=== PATIENT | female | born 1990 | race Caucasian/White ===

== ENCOUNTER → 2017-09-14 08:57 | Outpatient (CLI) | payer BC, SELFPAY ==
[2017-09-14 11:41] LABS: Progesterone Level 10.22 ng/mL (See Comment)
== END ==
PROVIDERS: Visit Provider Obstetrics & Gynecology
DX: N97.0 Female infertility associated with anovulation (principal)
CPT/HCPCS: 36415; 84144

== ENCOUNTER → 2019-08-24 16:08 | Outpatient (CLI) | payer BC, SELFPAY ==
[2019-08-24 17:55] LABS: Hematocrit 40.3 % (37-47); Hemoglobin 13.6 g/dL (12.0-15.0); Mean Corp Hgb Conc 33.7 g/dL (32-36); Mean Corpuscular Hgb 29.8 pg (27.0-32.0); Mean Corpuscular Volume 88.4 fL (81-99); Mean Platelet Vol. 10.5 fl (6.2-12.0); Platelet Count 284 K/mm3 (150-450); RBC Distribution Width CV 12.2 % (11.6-14.6); RBC Distribution Width SD 38.9 fl (35.1-43.9); Red Blood Count 4.56 M/mm3 (4.2-5.4); White Blood Count 12.2 K/mm3 (4.4-11.0)
[2019-08-24 18:23] LABS: Thyroid Stim Hormone (TSH) 1.38 uIU/mL (0.358-3.74)
[2019-08-24 18:36] LABS: Rubella IgG 235.7 IU/mL
== END ==
PROVIDERS: Visit Provider Obstetrics & Gynecology
DX: Z34.81 Encounter for supervision of other normal pregnancy, first trimester (principal)
CPT/HCPCS: 36415; 84443; 85027; 86762

== ENCOUNTER 2019-08-31 12:07 | Emergency (ER) | payer BC, SELFPAY ==
[2019-08-31 12:08] VITALS: BP 129/86; PULSE 90; RESP 16; TEMP 36.6; O2SAT 100; BMI 35.8
[2019-08-31] MEDS: 0.9% Normal Saline 1,000 ML 999 ML IV (14:23)
[2019-08-31 14:26] LABS: Absolute Neutrophil Count 5.3 X10^3/uL (2.0-7.7); Basophil# 0.02 X10^3/uL; Basophil% 0.3 % (0-1); Eosinophil# 0.12 X10^3/uL; Eosinophils% 1.6 % (0-5); Hematocrit 40.9 % (37-47); Hemoglobin 13.6 g/dL (12.0-15.0); Lymphocyte % 21.1 % (19-41); Mean Corp Hgb Conc 33.3 g/dL (32-36); Mean Corpuscular Hgb 29.5 pg (27.0-32.0); Mean Corpuscular Volume 88.7 fL (81-99); Mean Platelet Vol. 10.3 fl (6.2-12.0); Monocyte# 0.54 X10^3/uL; Monocyte% 7.1 % (0-10); NRBC Flagged by Analyzer 0 % (0-5); Neutrophil # 5.27 X10^3/uL (2.7-7.7); Neutrophil % 69.2 % (47-70); Platelet Count 228 K/mm3 (150-450); RBC Distribution Width CV 12.4 % (11.6-14.6); RBC Distribution Width SD 39.8 fl (35.1-43.9); Red Blood Count 4.61 M/mm3 (4.2-5.4); White Blood Count 7.6 K/mm3 (4.4-11.0)
[2019-08-31 14:35] LABS: Anion Gap 6 (5-15); BUN 9 mg/dL (7-18); BUN/Creat Ratio 10.7 RATIO (10-20); Calcium,Total 9.3 mg/dL (8.5-10.1); Chloride 106 mmol/L (98-107); Creatinine, Serum 0.84 mg/dL (0.55-1.02); EST Glomerular Filtration Rate 84 mL/min (>60); Est Glom Filt Rate - Afr Amer 102 mL/min (>60); Estimated Creatinine Clearance 94.37 ml/min; Glucose 92 mg/dL (74-106); Potassium 3.7 mmol/L (3.5-5.1); Sodium Level 137 mmol/L (136-145)
--- NOTE | 2019-08-31 15:15 | ED.DCSUM_ITS ---
- ER Visit Summary Date of Service: 08/31/19 Chief Complaint: Vomiting and diarrhea History of Present Illness: The patient is a [address] Sultana and they believe year. She reports she has vomiting diarrhea that began 4 days ago. States she has crampy abdominal pain that was 9 at 10 at worst and 2 out of 10 currently. Is worsened by drinking anything. Relieved by nothing. She states she is vomited multiple times. No blood or emesis. She is also had multiple episodes of diarrhea. No blood in her stools or black tarry stools. She reports that stool was initially orange and is now green. Patient denies sick contacts. Has not been camping out of the country. No possible bad food expo sure. Does not drink well water. No recent antibiotic use. Patient reports that she is actually getting much better. However, she is a G2, P0 at 13 weeks 5 days of and called the OBs office and she was told to go to the emergency department for IV fluids. Physical Examination: Vitals: Stable. Afebrile. General: Well-nourished and well-developed. Head: Normocephalic atraumatic. Neck: Supple, no lymphadenopathy. No JVD. Nontender. Cardiovascular: Regular rate and rhythm. No murmurs. Respiratory: No respiratory distress. Clear to auscultation bilaterally. Abdominal: Soft, mild left lower quadrant tenderness to palpation, nondistended, normal bowel sounds. No guarding, rebound, or peritoneal signs. Back: Nontender. Extremities: Nontender, no edema. Skin: Normal color, no rash. Neurologic: Alert and oriented ?3. Cranial nerves II through XII are intact. Normal strength and sensation. Psych: Normal affect. Test Results: CBC is normal. Chem-7 is normal. Emergency Department Course and Treatment: Patient had an IV placed. She was given Zofran IV. She was given normal saline. She is resting comfortably. She had a bedside ultrasound shows good movement and heartbeat. Treatment Plan: Patient discussed with Dr. Zheng. She will be discharged with Zofran. Instructed to follow-up with her primary care physician 1 to 2 days if the vomiting and diarrhea is not improved. Follow-up Dr. Sultana as previously scheduled. Return to the emergency department for any worsening symptoms. Disposition: To home in improved and stable condition. Impression: 1. Vomiting/diarrhea. 2. Second trimester . This note was generated with [employer] dictation software. It may contain incorrect words, spelling, and punctuation that were not noted in review of the chart prior to signing ED Disposition - Plan for ED Patient: Disposition: Home or Assisted Living Instructions: VOMITING AND DIARRHEA, Nonspecific (Adult) Prescriptions: Ondansetron [Zofran Odt] 4 mg PO Q8H PRN PRN #10 tab PRN Reason: Nausea Prescription Printed Referrals: Gerda Pink NP-C [Primary Care Provider] - 1-2 Days if not improving Molina Sultana MD [STAFF PHYSICIAN] - Keep Rehan appointment
--- NOTE | 2019-08-31 15:15 | ED.RN ---
PT STATES TO DR CARABALLO THAT IV FLUIDS ARE MAKING HER NAUSEOUS. DR CARABALLO TO ORDER ZOFRAN & ONLY 1 BAG OF FLUIDS TO BE GIVEN. RN WILL CONTINUE TO MONITOR PATIENT.
[2019-08-31] MEDS: Ondansetron 4 MG/2 ML Vial IV (15:24)
[2019-08-31 16:02] VITALS: BP 146/72; PULSE 68; RESP 15; O2SAT 97
== END 2019-08-31 16:31 | disposition home or self-care (01) ==
PROVIDERS: Emergency Provider Emergency Medicine; PCP Nurse Practitioner Family
DX: O21.9 Vomiting of pregnancy, unspecified (principal); O26.892 Other specified pregnancy related conditions, second trimester; R19.7 Diarrhea, unspecified; Z3A.13 13 weeks gestation of pregnancy
CPT/HCPCS: 80048; 85025; 96361; 96374; 99283; J7030; A4216; J2405

== ENCOUNTER 2019-10-17 03:00 | Outpatient (CLI) | payer BC, SELFPAY ==
[2019-10-17 03:27] VITALS: TEMP 36.9
[2019-10-17 03:29] VITALS: BP 119/80; PULSE 86
[2019-10-17 04:04] VITALS: BMI 36.6
--- NOTE | 2019-10-17 10:10 | OB.TRI.NOTE ---
History of Present Illness Date of Service: 10/17/19 Was patient seen by the physician?: No Reason For Visit: Vaginal bleeding Date of Service: 10/17/19 Final PATRICIA: 03/02/20 Final PATRICIA Source: US <20 weeks Gestational age: 20 Weeks and 3 Days History of Present Illness: 29-year-old patient who presents to labor and delivery at 20+ weeks gestation with heavy vaginal bleeding which started last evening. Bleeding has since subsided. She denies any other symptoms. Allergies amoxicillin Allergy (Verified 10/17/19 04:16) Hives Penicillins Allergy (Verified 10/17/19 04:16) Hives Sulfa (Sulfonamide Antibiotics) Allergy (Verified 10/17/19 04:16) Hives morphine Adverse Reaction (Verified 10/17/19 04:16) Upset Stomach Physical Exam Vitals: Vital Signs Temp Pulse BP 98.5 F 86 119/80 10/17/19 03:27 10/17/19 03:29 10/17/19 03:29 NST - FHR Rate Baby A NST Reactive:: Appropriate for gestational age Impression/Plan 20+ week intrauterine with second trimester vaginal bleeding. No bleeding on examination. heart tones present. Will have patient back to the office later today for ultrasound to check for placenta previa or other causes of bleeding.
== END 2019-10-17 04:13 | disposition home or self-care (01) ==
LOC: WPOUT 03:13 → OBT 03:14
PROVIDERS: PCP Nurse Practitioner Family; Visit Provider Obstetrics & Gynecology
DX: O46.92 Antepartum hemorrhage, unspecified, second trimester (principal); Z3A.20 20 weeks gestation of pregnancy
CPT/HCPCS: 59050; 99218; G0378

== ENCOUNTER → 2019-12-15 | Outpatient (CLI) | payer BC, SELFPAY ==
[2019-12-15 18:25] LABS: Hemoglobin 12.6 g/dL (12.0-15.0); Mean Corp Hgb Conc 33.2 g/dL (32-36); Mean Corpuscular Hgb 30.4 pg (27.0-32.0); Mean Corpuscular Volume 91.6 fL (81-99); Platelet Count 233 K/mm3 (150-450); RBC Distribution Width CV 12.4 % (11.6-14.6); RBC Distribution Width SD 40.9 fl (35.1-43.9); Red Blood Count 4.15 M/mm3 (4.2-5.4)
[2019-12-15 19:06] LABS: Glucose Challenge Gest 1H 50g 181 mg/dL (70-140)
== END | disposition home or self-care (01) ==
LOC: LABSPEC 17:37
PROVIDERS: PCP Nurse Practitioner Family; Visit Provider Obstetrics & Gynecology
DX: Z34.82 Encounter for supervision of other normal pregnancy, second trimester (principal)
CPT/HCPCS: 82950; 85027

== ENCOUNTER → 2019-12-20 06:43 | Outpatient (CLI) | payer BC, SELFPAY ==
[2019-12-20 08:03] LABS: Glucose GTT-Gestation. Fasting 136 mg/dL (<105)
[2019-12-20 09:26] LABS: Glucose GTT-Gestational 1 Hr 240 mg/dL (<190)
[2019-12-20 11:01] LABS: Glucose GTT-Gestational 2 Hr 272 mg/dL (<165)
[2019-12-20 11:02] LABS: Glucose GTT-Gestational 3 Hr 188 L (<145)
== END ==
PROVIDERS: PCP Nurse Practitioner Family; Referring Provider Obstetrics & Gynecology; Visit Provider Obstetrics & Gynecology
DX: O24.912 Unspecified diabetes mellitus in pregnancy, second trimester (principal); Z3A.00 Weeks of gestation of pregnancy not specified
CPT/HCPCS: 36415; 82951; 82952

== ENCOUNTER 2020-01-03 10:30 | Outpatient (RCR) | payer BC, SELFPAY | END 2020-01-08 23:59 | LOC: DC 10:30 | PROVIDERS: PCP Nurse Practitioner Family; Visit Provider Obstetrics & Gynecology | DX: Z71.3 Dietary counseling and surveillance (principal); O24.410 Gestational diabetes mellitus in pregnancy, diet controlled; Z3A.00 Weeks of gestation of pregnancy not specified | CPT/HCPCS: 97802; G0108 ==

== ENCOUNTER 2020-01-10 10:50 | Outpatient (RCR) | payer BC, SELFPAY | END 2020-01-10 23:59 | disposition home or self-care (01) | LOC: DC 10:50 | PROVIDERS: PCP Nurse Practitioner Family; Visit Provider Obstetrics & Gynecology | DX: Z71.3 Dietary counseling and surveillance (principal); O24.410 Gestational diabetes mellitus in pregnancy, diet controlled; Z3A.00 Weeks of gestation of pregnancy not specified ==

== ENCOUNTER → 2020-02-09 | Outpatient (CLI) | payer BC, SELFPAY | END | disposition home or self-care (01) | LOC: LABSPEC 17:09 | PROVIDERS: PCP Nurse Practitioner Family; Visit Provider Obstetrics & Gynecology | DX: Z36.85 Encounter for antenatal screening for Streptococcus B (principal) | CPT/HCPCS: 87081 ==

== ENCOUNTER → 2020-02-16 | Outpatient (CLI) | payer BC, SELFPAY | END | disposition home or self-care (01) | LOC: LABSPEC 17:36 | PROVIDERS: PCP Nurse Practitioner Family; Referring Provider Obstetrics & Gynecology; Visit Provider Obstetrics & Gynecology | DX: Z11.59 Encounter for screening for other viral diseases (principal) | CPT/HCPCS: 87635; G2023; U0003 ==

== ENCOUNTER 2020-02-23 18:44 | Inpatient (IN) | payer BC, SELFPAY ==
[2020-02-23] VITALS (7 sets, daily range): BP systolic 124–130; BP diastolic 75–85; PULSE 74–90; TEMP 36.3–36.6; O2SAT 98; BMI 36.9
[2020-02-23] MEDS: Lactated Ringers 1,000 ML 50 ML IV (19:35)
[2020-02-23 19:48] LABS: Absolute Lymphocyte Count 1.79 X10^3/uL (0.83-4.51); Absolute Neutrophil Count 8.4 X10^3/uL (2.0-7.7); Basophil# 0.03 X10^3/uL; Basophil% 0.3 % (0-1); Eosinophil# 0.12 X10^3/uL; Eosinophils% 1.1 % (0-5); Hematocrit 35.6 % (37-47); Hemoglobin 12.1 g/dL (12.0-15.0); Lymphocyte # 1.79 X10^3/ul (4.0); Lymphocyte % 16.5 % (19-41); Mean Corpuscular Volume 88.3 fL (81-99); Mean Platelet Vol. 10.8 fl (6.2-12.0); Monocyte# 0.47 X10^3/uL; Monocyte% 4.3 % (0-10); NRBC Flagged by Analyzer 0 % (0-5); Neutrophil # 8.38 X10^3/uL (2.7-7.7); Neutrophil % 77.3 % (47-70); Platelet Count 224 K/mm3 (150-450); RBC Distribution Width CV 12.5 % (11.6-14.6); RBC Distribution Width SD 40.7 fl (35.1-43.9); Red Blood Count 4.03 M/mm3 (4.2-5.4); White Blood Count 10.8 K/mm3 (4.4-11.0)
[2020-02-23 20:16] LABS: Bedside Glucose 118 mg/dL (70-110)
--- NOTE | 2020-02-23 20:35 | HP.PCM_ITS ---
- Problem List (1) 38 weeks gestation of Status: Acute History Date of Admission: 02/23/20 Final PATRICIA: 03/02/20 Final PATRICIA Source: US <20 weeks Gestational age: 38 Weeks and 6 Days History of this : This is a 29 year-old, G [2], P [0], at 38 weeks gestational age. 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 Allergies amoxicillin Allergy (Verified 10/17/19 04:16) Hives Penicillins Allergy (Verified 10/17/19 04:16) Hives Sulfa (Sulfonamide Antibiotics) Allergy (Verified 10/17/19 04:16) Hives morphine Adverse Reaction (Mild, Verified 02/23/20 19:22) Upset Stomach vomiting, stomach spasms Home Medications: Home Medications Guaifenesin Dm 1,200 mg PO DAILY PRN 10/17/19 Tablet 1 tab PO DAILY 10/17/19 Zyrtec 10 mg PO DAILY PRN PRN 10/17/19 Esomeprazole Magnesium [Nexium 24Hr] 20 mg PO DAILY 02/23/20 Glyburide 1.25 mg PO DINNER 02/23/20 Smoking Status: Never smoker Alcohol: None Number of Fetus(es): 1 NST - FHR Rate Baby A Baseline: 135 Variability:: Moderate Accelerations:: 15 x 15 Decelerations:: None NST Reactive:: Yes Uterine Activity:: quiet History Past Pregnancies: PAST #1: Date of :.................. 02/09/19 Gestation Weeks:................ 7 Length of labor(hours):......... 0 Sex:............................ UNKNOWN Weight-lbs:............... 0 Weight-oz:................ 0 Type of Delivery:............... Vag Type of Anesthesia:............. None Place of Delivery:.............. HOME Treatment of Labor?:.... No Comment: 2ND TRANSFER ISSUE Labs: Mom's Problem List Problem Status Onset Code 38 weeks gestation of Acute Z3A.38 Mom's Labs & Results 02/23/20 02/23/20 02/23/20 19:35 19:35 20:11 WBC 10.8 RBC 4.03 L Hgb 12.1 Hct 35.6 L MCV 88.3 MCH 30.0 MCHC 34.0 RDW Std Deviation 40.7 RDW Coeff of Lelia 12.5 Plt Count 224 MPV 10.8 Immature Gran % (Auto) 0.500 Neut % (Auto) 77.3 H Lymph % (Auto) 16.5 L [place] % (Auto) 4.3 Eos % (Auto) 1.1 Baso % (Auto) 0.3 Absolute Neuts (auto) 8.4 H Absolute Lymphs (auto) 1.79 Nucleated RBC % 0 POC Glucose 118 H Blood Type Pending Antibody Screen Pending Course Did the patient receive Yes care? Labs Blood Type: O RH: POSITIVE RPR/VDRL/Syphilis Nonreactive Rubella status Immune HbSAg Negative Date Done: 07/25/19 Chlamydia Negative Gonorrhea Negative HIV/AIDS Non-Reactive Group B Strep: Negative Social History Marital Status: Alleged father Albert Johnston Hx Smoking No Smoking Status Never smoker Expected Infant Delivery Method: Spontaneous Vaginal Number of Visits: 19 Review of Systems Constitutional: Denies: Chills, Fever, Weight Change HEENT: Denies: Head Aches, Sinus Congestion, Sinus Drainage Cardiovascular: Denies: Chest Pain, Palpitations Respiratory: Denies: Cough, Shortness of breath at rest, Sputum production Gastrointestinal: Denies: Abdominal Pain, Nausea, Vomiting Genitourinary: Denies: Dysuria Musculoskeletal: Denies: Joint Pain, Joint Tenderness Skin: Denies: Rash, Wounds Neurological: Denies: Numbness, Tingling, Focal weakness Psychiatric: Denies: Anxiety, Depression, Homicidal Ideations, Suicidal Ideations Hematologic/ Lymphatic: Denies: Easy Bruising, Easy Bleeding Physical Exam Vitals: Vital Signs Temp Pulse BP Pulse Ox 97.8 F 87 129/75 H 98 02/23/20 19:18 02/23/20 19:53 02/23/20 19:22 02/23/20 19:53 General: Alert, Oriented x3, No apparent distress HEENT: Atraumatic, Normocephalic. Negative for: Thyromegaly, Lymphadenopathy Cardiovascular: Regular rate, Regular Rhythm Lungs: Clear to auscultation Abdomen: Bowel Sounds Present, Gravid Neurological: Deep Tendon Reflexes 2+/4 and Symmetrical, Neuro grossly intact FIELD SERVICE COORDINATOR: Normal external genitalia. Negative for: Vulvar lesions Estimated gestational size: Appropriate for gestational size Presentation: Cephalic Cervix Dilation (cm): 0 Station: -3 Effacement (%): 25 Assessment/Plan All Active Problems 38 weeks gestation of (Acute) A/P: This is a 29 year-old, G [2], P [0], at 38 weeks gestational age. complicated by mild polyhydramnios, GDM, and persistent vaginal edema/vaginismus GDM controlled with BID Glyburide SVE ft/25/-3 soft midposition, maternal discomfort with exam, wishing to have least amount of SVE as possible FHR NST Category I tracing Cytotec induction 25mcg PO Q4H overnight Plan for AROM and Pitocin in AM Expect Procedure Criteria Procedure Type: Elective COVID Risk Discussion: The surgeon/proceduralist and patient have discussed in detail the risk of exposure to and/or potential harm posed by the COVID-19 virus with having a surgery/procedure at this time versus the risk of delaying the surgery/procedure. It is not possible to know either the risk of delaying the surgery or procedure or chance of getting an infection with perfect accuracy, but a joint decision was made between the patient and the surgeon/proceduralist to proceed at this time with the scheduled surgery/procedure as indicated on the consent form.
[2020-02-23] MEDS: miSOPROStol 25 MCG TABLET PO (20:52)
[2020-02-23 21:45] LABS: Bedside Glucose 102 mg/dL (70-110)
[2020-02-24] VITALS (53 sets, daily range): BP systolic 107–185; BP diastolic 56–110; PULSE 66–214; TEMP 35.7–36.8; O2SAT 82–100
[2020-02-24] MEDS: Acetaminophen 325 MG Tablet PO ×4 (00:54→13:13)
[2020-02-24] MEDS: miSOPROStol 25 MCG TABLET PO ×4 (00:55→13:03)
[2020-02-24 06:15] LABS: Bedside Glucose 102 mg/dL (70-110)
--- NOTE | 2020-02-24 08:05 | PCM.PN.OB ---
Patient Problems: Active and Suspected Problems 38 weeks gestation of (Acute) Subjective: Sleeping at this time Objective: VSS. UC 2-8m irregular. FHR baseline 140, +accels, -decels, moderate variability. SVE /-3 - Physical Exam Vitals/I&O's: Vital Signs Temp Pulse BP Pulse Ox 96.6 F L 69 137/79 H 100 02/24/20 06:06 02/24/20 06:08 02/24/20 06:08 02/24/20 06:07 Weight: 107 kg Body Mass Index (BMI) 36.9 Intake and Output for Last 24 Hours 02/22/20 02/23/20 02/24/20 23:59 23:59 23:59 Intake Total 70.83 / 70.83 800 / 800 Output Total 200 / 200 600 / 600 Balance -129.17 / -129.17 200 / 200 General: Alert, Oriented x3, Cooperative HEENT: Atraumatic, PERRLA, EOMI, Normocephalic Neck: Supple, No JVD, Negative Carotid Bruits Lungs: Clear to auscultation, Normal air movement Cardiovascular: Regular rate, No murmurs Abdomen: Bowel Sounds Present, Soft, Non Tender Extremities: No edema, Capillary Refill Less than 3 Seconds Skin: No rashes, No breakdown Musculoskeletal: No Tenderness to Palpation of Joints or Extremities Neurological: Cranial nerves II-XII grossly intact Psych/Mental Status: Normal Affect, Appropriate Laboratory Results 02/23/20 19:35: WBC 10.8, RBC 4.03 L, Hgb 12.1, Hct 35.6 L, MCV 88.3, MCH 30.0, MCHC 34.0, RDW Std Deviation 40.7, RDW Coeff of Lelia 12.5, Plt Count 224, MPV 10.8, Immature Gran % (Auto) 0.500, Neut % (Auto) 77.3 H, Lymph % (Auto) 16.5 L, [place] % (Auto) 4.3, Eos % (Auto) 1.1, Baso % (Auto) 0.3, Absolute Neuts (auto) 8.4 H, Absolute Lymphs (auto) 1.79, Nucleated RBC % 0 02/23/20 19:35: Blood Type O POSITIVE, Antibody Screen NEGATIVE 02/23/20 20:11: POC Glucose 118 H 02/23/20 21:22: POC Glucose 102 02/24/20 06:02: POC Glucose 102 Current Medications Acetaminophen (Tylenol) 325 - 650 mg PO Q4H PRN PRN PRN Reason: Pain Score 1-3/10 Last Admin: 02/24/20 04:59 Dose: 650 mg Documented by: Al Hydroxide/Mg Hydroxide (Mylanta Ii) 15 - 30 ml PO Q4H PRN PRN PRN Reason: INDIGESTION Citric Acid/Sodium Citrate (Bicitra) 30 ml PO X1 PRN PRN Reason: Section Fentanyl Citrate (Sublimaze (100mcg Ampule)) 25 - 50 mcg IV Q2H PRN PRN PRN Reason: Pain Score 4-10/10 Lactated Ringer's () 500 mls @ 999 mls/hr IV .Q31M PRN PRN Reason: Epidural Lactated Ringer's () 500 mls @ 999 mls/hr IV .Q31M PRN PRN Reason: Corrective Measures Lactated Ringer's () 1,000 mls @ 50 mls/hr IV .Q20H MONTSE Last Infusion: 02/23/20 21:00 Dose: 0 mls/hr Documented by: Misoprostol (Cytotec) 25 mcg PO Q4 MONTSE Last Admin: 02/24/20 04:59 Dose: 25 mcg Documented by: Ondansetron HCl (Zofran) 4 mg IV Q4H PRN PRN PRN Reason: NAUSEA Prochlorperazine Edisylate (Compazine Iv) 10 mg IV Q6H PRN PRN PRN Reason: NAUSEA Sodium Chloride () 10 - 40 ml IV X1 PRN PRN Reason: SALINE FLUSH Medical Necessity - Tobacco Use Smoking Status: Never smoker Assessment/Plan All Active Problems 38 weeks gestation of (Acute) A/P: IOL with AROM planned this AM Three doses of Cytotec orally have been given SVE 3, pain with each SVE Will update attending, Dr. Sultana on patient's wishes to have him AROM her before Pitocin is started Expect
[2020-02-24 12:00] LABS: Bedside Glucose 127 mg/dL (70-110)
--- NOTE | 2020-02-24 12:55 | PN.OBGYN_ITS ---
Patient Problems: Active and Suspected Problems 38 weeks gestation of (Acute) Subjective: Just ate lunch and feeling okay. Denies pain or concerns. Objective: VSS. Cervix remains unchanged at 09/03/ posterior - Physical Exam Vitals/I&O's: Vital Signs Temp Pulse BP Pulse Ox 97.5 F L 214 H 124/77 H 82 02/24/20 09:04 02/24/20 16:41 02/24/20 15:13 02/24/20 16:41 Weight: 107 kg Body Mass Index (BMI) 36.9 Intake and Output for Last 24 Hours 02/22/20 02/23/20 02/24/20 23:59 23:59 23:59 Intake Total 70.83 / 70.83 800 / 800 Output Total 200 / 200 600 / 600 Balance -129.17 / -129.17 200 / 200 General: Alert, Oriented x3, Cooperative HEENT: Atraumatic, PERRLA, EOMI, Normocephalic Neck: Supple, No JVD, Negative Carotid Bruits Lungs: Clear to auscultation, Normal air movement Cardiovascular: Regular rate, No murmurs Abdomen: Bowel Sounds Present, Soft, Non Tender Extremities: No edema, Capillary Refill Less than 3 Seconds Skin: No rashes, No breakdown Musculoskeletal: No Tenderness to Palpation of Joints or Extremities Neurological: Cranial nerves II-XII grossly intact Psych/Mental Status: Normal Affect, Appropriate Laboratory Results 02/23/20 19:35: WBC 10.8, RBC 4.03 L, Hgb 12.1, Hct 35.6 L, MCV 88.3, MCH 30.0, MCHC 34.0, RDW Std Deviation 40.7, RDW Coeff of Lelia 12.5, Plt Count 224, MPV 10.8, Immature Gran % (Auto) 0.500, Neut % (Auto) 77.3 H, Lymph % (Auto) 16.5 L, [place] % (Auto) 4.3, Eos % (Auto) 1.1, Baso % (Auto) 0.3, Absolute Neuts (auto) 8.4 H, Absolute Lymphs (auto) 1.79, Nucleated RBC % 0 02/23/20 19:35: Blood Type O POSITIVE, Antibody Screen NEGATIVE 02/23/20 20:11: POC Glucose 118 H 02/23/20 21:22: POC Glucose 102 02/24/20 06:02: POC Glucose 102 02/24/20 11:54: POC Glucose 127 H 02/24/20 15:12: POC Glucose 97 Current Medications Acetaminophen (Tylenol) 325 - 650 mg PO Q4H PRN PRN PRN Reason: Pain Score 1-3/10 Last Admin: 02/24/20 13:13 Dose: 650 mg Documented by: Al Hydroxide/Mg Hydroxide (Mylanta Ii) 15 - 30 ml PO Q4H PRN PRN PRN Reason: INDIGESTION Citric Acid/Sodium Citrate (Bicitra) 30 ml PO X1 PRN PRN Reason: Section Fentanyl Citrate (Sublimaze (100mcg Ampule)) 25 - 50 mcg IV Q2H PRN PRN PRN Reason: Pain Score 4-10/10 Lactated Ringer's () 500 mls @ 999 mls/hr IV .Q31M PRN PRN Reason: Epidural Lactated Ringer's () 500 mls @ 999 mls/hr IV .Q31M PRN PRN Reason: Corrective Measures Lactated Ringer's () 1,000 mls @ 50 mls/hr IV .Q20H [facility] Last Infusion: 02/23/20 21:00 Dose: 0 mls/hr Documented by: Misoprostol (Cytotec) 25 mcg PO Q4 MONTSE Last Admin: 02/24/20 13:03 Dose: 25 mcg Documented by: Ondansetron HCl (Zofran) 4 mg IV Q4H PRN PRN PRN Reason: NAUSEA Prochlorperazine Edisylate (Compazine Iv) 10 mg IV Q6H PRN PRN PRN Reason: NAUSEA Sodium Chloride () 10 - 40 ml IV X1 PRN PRN Reason: SALINE FLUSH Medical Necessity - Tobacco Use Smoking Status: Never smoker Assessment/Plan All Active Problems 38 weeks gestation of (Acute) A/P: SVE remains unchanged 5th dose of Cytotec to be given Attending MD updated on POC Continue routine orders
[2020-02-24 15:21] LABS: Bedside Glucose 97 mg/dL (70-110)
[2020-02-24] MEDS: Lactated Ringers 500 ML IV (17:30)
[2020-02-24] MEDS: fentaNYL-bupivacaine (epidural) 100 ML BAG EPIDURAL ×2 (17:51→20:47)
[2020-02-24] MEDS: Oxytocin 30 units/NS 500 ml 30 UNITS/500 ML IV.SOLN IV (18:41)
[2020-02-24] MEDS: Ondansetron 4 MG/2 ML Vial IV ×2 (19:11→23:45)
[2020-02-24] MEDS: Lactated Ringers 1,000 ML 200 ML IV (19:33)
[2020-02-24 20:16] LABS: Bedside Glucose 88 mg/dL (70-110)
[2020-02-24] MEDS: 0.9% Saline Lock 10 ML Syringe IV (23:45)
[2020-02-24 23:46] LABS: Bedside Glucose 80 mg/dL (70-110)
[2020-02-25] VITALS (30 sets, daily range): BP systolic 75–173; BP diastolic 39–127; PULSE 72–157; RESP 14–18; TEMP 36.3–36.7; O2SAT 82–100
[2020-02-25] MEDS: Lactated Ringers 1,000 ML 200 ML IV (00:38)
[2020-02-25] MEDS: proCHLORPERazine 10 MG/2 ML Vial IV (01:02)
[2020-02-25 01:11] LABS: Bedside Glucose 92 mg/dL (70-110)
[2020-02-25 01:26] LABS: Bedside Glucose 89 mg/dL (70-110)
[2020-02-25] MEDS: fentaNYL-bupivacaine (epidural) 100 ML BAG EPIDURAL (01:26)
[2020-02-25 02:21] LABS: Bedside Glucose 125 mg/dL (70-110)
[2020-02-25 03:26] LABS: Bedside Glucose 120 mg/dL (70-110)
[2020-02-25 04:36] LABS: Bedside Glucose 124 mg/dL (70-110)
[2020-02-25] MEDS: Oxytocin 30 units/NS 500 ml 30 UNITS/500 ML IV.SOLN 334 UNITS IV (05:48)
--- NOTE | 2020-02-25 06:02 | PCM.OPRPT ---
Vaginal Delivery Maternal Presentation: Medically Indicated Induction - Gestational Diabetes and Polyhydramnios Method of Induction: Pitocin, Amniotomy, Cytotec Medical Reason for Induction: Gestational Hypertension Amniotic Membrane Rupture Type: Artificial Amniotic Fluid Description: Clear Final PATRICIA: 03/02/20 Final PATRICIA Source: US <20 weeks Gestational age: 39 Weeks and 1 Days Date of Procedure: 02/25/20 Pre-Operative Diagnosis: IUP, Polyhydramnios, Gestational Diabetes Post-Operative Diagnosis: IUP, Polyhydramnios, Gestational Diabetes Surgery/ Procedure Performed: Vacuum Assisted Vaginal Delivery Type of Anesthesia: Epidural Description of Procedure: Spontaneous vaginal delivery of a viable male with Apgars of 8/9 from an occiput anterior presentation with clear amniotic fluid and normal three-vessel placenta. Cord around the neck x1 tight and true knot in the cord. No episiotomy. First-degree midline laceration repaired with 3-0 Rapide suture under epidural. Arterial bleeder noted in laceration. Kiwi vacuum used x1 gentle pull from low outlet to expedite delivery of the head after approximately 2 hours of pushing, increasing maternal fatigue and deep decelerations with pushing. Sponges okay. Delivery physician: Molina Sultana MD. Presentation: Vertex Placental Delivery Description: Spontaneous Placenta Disposition: [facility] Cord Vessel Description: 3 Vessels Cord Gases drawn per routine: ABG Cord Entanglement: Around neck x 1, tight, True Knot(s) - X1 Estimated Blood Loss: 350 cc A gender: Male (1 minute): 8 (5 minute): 9 Episiotomy Description: None Laceration: Midline, 1st degree Medications given after delivery: IV Pitocin Complications: None
[2020-02-25] MEDS: Lactated Ringers 500 ML 999 ML IV (06:07)
--- NOTE | 2020-02-25 06:08 | DCINST_ITS ---
Discharge Diet: No Restrictions Discharge Activity: May Shower, May Take a Tub Bath May resume sexual activity in: 4-6 weeks Additional Activity Instructions:: Nothing in the vagina for 4-6 weeks. You may return to work/school in 6 weeks. Call your doctor if you observe: Inability to urinate, Inability to have a bowel movement, Using more than one pad per hour Additional Instructions: If you experience any of the following, contact your healthcare provider. * Bleeding that soaks a pad every hour for 2 hours * Fever 100.4 or higher * Unrelieved incision or abdominal pain * Swelling, redness, discharge or bleeding from your incision or episiotomy site * Your incision begins to separate * Problems urinating (including inability to urinate or burning while urinating). * Visual changes * Severe headache * Flu-like symptoms * Pain or redness in one of both of your breasts * Pain, warmth, tenderness or swelling in your legs, especially the calf area * Frequent nausea and vomiting * Symptoms of depression or anxiety If you experience any of the following, call 911 or go to the nearest Emergency Room. * Chest pain * Problems breathing * Seizure activity * Partial or complete paralysis of a body part, slurred speech, weakness or drooping of the face, or a sudden inability to walk or hold your balance Allergies/Adverse Reactions: Allergies amoxicillin Allergy (Verified 10/17/19 04:16) Hives Penicillins Allergy (Verified 10/17/19 04:16) Hives Sulfa (Sulfonamide Antibiotics) Allergy (Verified 10/17/19 04:16) Hives morphine Adverse Reaction (Mild, Verified 02/23/20 19:22) Upset Stomach vomiting, stomach spasms Medications to take at Discharge Guaifenesin Dm 1,200 mg PO DAILY PRN 10/17/19 Tablet 1 tab PO DAILY 10/17/19 Zyrtec 10 mg PO DAILY PRN PRN 10/17/19 Esomeprazole Magnesium [Nexium 24Hr] 20 mg PO DAILY 02/23/20 Please Follow Up With: Molina Sultana MD - [phone] When: Call to make an appointment with your doctor in 6 weeks. Primary Care Physician: Gerda Pink, ELIGIO-C [Primary Care Provider] - Test Results: Test results from this visit will be discussed in further detail at your follow- up appointment, if applicable.
--- NOTE | 2020-02-25 07:52 | NURSING ---
Per Dr. Sultana, no need to check post delivery BGT on patient.
--- NOTE | 2020-02-25 11:09 | NURSING ---
Shift change off going nurse reported that does not want a fasting AM BG check on patient.
[2020-02-25] MEDS: Ibuprofen 600 MG Tablet PO ×2 (12:02→20:00)
[2020-02-25] MEDS: Senna/Docusate Sodium 1 Tablet PO (12:02)
--- NOTE | 2020-02-25 15:25 | CASEMGMT ---
Social Work Brief Assessment - Labor and Delivery Unit Refer documentation below for further details. Date of Referral/Notification: 02/25/2020 Time of Referral: 11:06am Reason for Referral: Limited Support/Resources Date of Intervention: 02/25/2020 Time of Intervention: 15:25 Informant: Medical record and mother of baby (MOB) Assessment: Discussed case with nursing. Nursing voicing concern because /FOB has been ?disengaged.? Referred to social work program coordinator for support/resources. Met with MOB alone in room. Introduced role and reason for referral. MOB reports has been doing well, ?just sore? since delivery early this morning. MOB reports baby elsy Hedrick has not been latching and she is having issues with pumping. Support provided. MOB discussed relationship with /FOB and states they have been together for 13 years. MOB states FOB returned home today as a tree had fallen in their driveway and ?he went home to take care of it.? MOB reports FOB is on the way back to hospital. MOB reports good support from FOB and denies any concerns. While this worker in room, FOB arrived and MOB laughed and said, ?they are worried because you left.? MOB and FOB deny any issues or needs for home going. MOB?s nurse in room to check on baby. Updated staff on this worker?s assessment. Plan: Anticipate discharge home tomorrow. No further needs requested or indicated. -Miranda Ceballos, GUEST SERVICES ASSOCIATE, SENIOR SALES OPERATIONS MANAGER
[2020-02-25] MEDS: Acetaminophen 500 MG Tablet 1000 MG PO (17:57)
[2020-02-26] MEDS: Acetaminophen 500 MG Tablet 1000 MG PO ×2 (02:00→11:53)
[2020-02-26] MEDS: Ibuprofen 600 MG Tablet PO ×2 (02:01→08:02)
[2020-02-26 04:08] VITALS: BP 116/66; PULSE 81; RESP 18; TEMP 36.8
[2020-02-26 07:57] VITALS: BP 106/60; PULSE 89
[2020-02-26] MEDS: Senna/Docusate Sodium 1 Tablet PO (08:02)
[2020-02-26 08:10] VITALS: BP 109/60; PULSE 89; RESP 14; TEMP 36.6
--- NOTE | 2020-02-26 10:03 | PN.OBGYN_ITS ---
Patient Problems: Active and Suspected Problems 38 weeks gestation of (Acute) Subjective: Feeling well today. Has some anxiety over sons bilirubin levels and not being able to breastfeed well. Overall feels well enough to go home today. Will come back tomorrow for appointment and bilirubin check. Has been a mbulating in her room, tolerating a regular diet, urinating fine and passing flatus. Concerned that when she sneezed she could have tore her incision, but the vaginal edema is going down. Objective: VSS. BS stable. Fundus is firm, midline, u/1. Lochia rubra moderate. Mild vaginal edema with sutures intact. - Physical Exam Vitals/I&O's: Vital Signs Temp Pulse Resp BP Pulse Ox 97.9 F 89 14 109/60 99 02/26/20 08:10 02/26/20 08:10 02/26/20 08:10 02/26/20 08:10 02/25/20 07:55 Oxygen Delivery Method Room Air Weight: 107 kg Body Mass Index (BMI) 36.9 Intake and Output for Last 24 Hours 02/24/20 02/25/20 02/26/20 23:59 23:59 23:59 Intake Total 2737.21 / 2737.21 2602.29 / 2602.29 Output Total 1300 / 1300 1800 / 1800 Balance 1437.21 / 1437.21 802.29 / 802.29 General: Alert, Oriented x3, Cooperative HEENT: Atraumatic, PERRLA, EOMI, Normocephalic Neck: Supple, No JVD, Negative Carotid Bruits Lungs: Clear to auscultation, Normal air movement Cardiovascular: Regular rate, No murmurs Abdomen: Bowel Sounds Present, Soft, Non Tender Extremities: No edema, Capillary Refill Less than 3 Seconds Skin: No rashes, No breakdown Musculoskeletal: No Tenderness to Palpation of Joints or Extremities Neurological: Cranial nerves II-XII grossly intact Psych/Mental Status: Normal Affect, Appropriate Current Medications Acetaminophen (Tylenol) 1,000 mg PO Q8H PRN PRN PRN Reason: Pain Score 1-3/10 Last Admin: 02/26/20 02:00 Dose: 1,000 mg Documented by: Bisacodyl (Dulcolax) 10 mg RECTAL UD PRN PRN Reason: If no BM Dibucaine (Dibucaine) 1 applic TOPICAL TID PRN PRN; Protocol PRN Reason: Discomfort Guaifenesin (Humibid Dm) 2 tablet PO DAILY PRN PRN PRN Reason: ALLERGIES Hydrocortisone (Hytone) 1 applic TOPICAL TID PRN PRN; Protocol PRN Reason: Discomfort Ibuprofen (Motrin) 600 mg PO Q6H PRN PRN PRN Reason: Pain Score 1-3/10 Last Admin: 02/26/20 08:02 Dose: 600 mg Documented by: Loratadine (Claritin) 10 mg PO DAILY PRN PRN Methylergonovine Maleate (Methergine) 0.2 mg IM X1 PRN PRN Reason: Excess bleeding/uterine atony Ondansetron HCl (Zofran) 4 mg IV Q4H PRN PRN PRN Reason: Nausea Oxycodone HCl (Oxyir) 5 - 10 mg PO Q4H PRN PRN PRN Reason: Pain Score 4-10/10 Pantoprazole Sodium (Protonix) 20 mg PO DAILY MONTSE Last Admin: 02/26/20 08:07 Dose: Not Given Documented by: Senna/Docusate Sodium (Senokot-S, Cammie-Colace) 1 - 2 tablet PO DAILY PRN PRN PRN Reason: Constipation Last Admin: 02/26/20 08:02 Dose: 2 tablet Documented by: Simethicone (Mylicon) 80 mg PO PCHS PRN PRN Reason: Indigestion/Stomach pain Sodium Chloride () 5 - 15 ml IV UD PRN PRN Reason: SALINE FLUSH Throat Lozenges (Dermoplast (Sp)) 1 applic TOPICAL 4X/DAY PRN PRN; Protocol PRN Reason: Pain/Inflammation Zolpidem Tartrate (Ambien (Generic)) 5 mg PO QHS PRN PRN PRN Reason: Insomnia Medical Necessity - Tobacco Use Smoking Status: Never smoker Assessment/Plan All Active Problems 38 weeks gestation of (Acute) A/P: S/P vacuum assisted delivery day #1 mother, having latching difficulty. Nipple shield given per and appointment made with them tomorrow. Pump is still not in, discussed getting [place] until then. Vaginal pain is mild, but controlled with Motrin, Tylenol and Ice. Dermoplast spray ordered to keep at bedside. Son is being circumcised today and to return tomorrow for bilirubin check Dyad stable Educated on depression, normal involution and lochia, , and sutures dissolving on their own Follow up appointment in 6 weeks Able to be discharged today
== END 2020-02-26 13:05 | disposition home or self-care (01) | DRG 807 ==
LOC: WP 18:52
PROVIDERS: Admitting Provider Obstetrics & Gynecology; PCP Nurse Practitioner Family; Visit Provider Obstetrics & Gynecology
DX: O76 Abnormality in fetal heart rate and rhythm complicating labor and delivery (principal); Z37.0 Single live birth; O75.81 Maternal exhaustion complicating labor and delivery; O24.425 Gestational diabetes mellitus in childbirth, controlled by oral hypoglycemic drugs; O40.3XX0 Polyhydramnios, third trimester, not applicable or unspecified; O69.1XX0 Labor and delivery complicated by cord around neck, with compression, not applicable or unspecified; O70.0 First degree perineal laceration during delivery; O99.62 Diseases of the digestive system complicating childbirth; K21.9 Gastro-esophageal reflux disease without esophagitis; O69.2XX0 Labor and delivery complicated by other cord entanglement, with compression, not applicable or unspecified; O34.63 Maternal care for abnormality of vagina, third trimester; N94.2 Vaginismus; Z3A.39 39 weeks gestation of pregnancy
CPT/HCPCS: 59025; 59050; 82962; 85025; 86850; 86900; 86901; 99218; J7120; A4216; G0378; J2405

== ENCOUNTER → 2020-08-22 | Outpatient (CLI) | payer BC, SELFPAY ==
[2020-02-23 19:20] VITALS: BMI 36.9
[2020-08-26 07:26] LABS: HPV Reflexed? NOT INDICATED
== END | disposition home or self-care (01) ==
LOC: LABSPEC 17:04
PROVIDERS: PCP Nurse Practitioner Family; Visit Provider Obstetrics & Gynecology
DX: Z12.4 Encounter for screening for malignant neoplasm of cervix (principal)
CPT/HCPCS: 88175; G0145

== ENCOUNTER → 2021-07-01 | Outpatient (CLI) | payer BC, SELFPAY | END | disposition home or self-care (01) | PROVIDERS: Visit Provider Student in an Organized Health Care Education/Training Program | DX: N76.0 Acute vaginitis (principal) ==

== ENCOUNTER → 2021-07-30 | Outpatient (CLI) | payer BC, SELFPAY ==
[2021-08-06 14:06] LABS: HPV Reflexed? NOT INDICATED
== END | disposition home or self-care (01) ==
LOC: LABSPEC 13:06
PROVIDERS: Visit Provider Obstetrics & Gynecology
DX: Z12.4 Encounter for screening for malignant neoplasm of cervix (principal)
CPT/HCPCS: 88175; G0145

== ENCOUNTER 2022-06-12 11:00 | Emergency (ER) | payer BC, SELFPAY ==
[2022-06-12 11:01] VITALS: BP 134/118; PULSE 124; RESP 18; TEMP 36; O2SAT 98; BMI 34.4
--- NOTE | 2022-06-12 11:55 | ED.VIS.BACK ---
HPI History of Present Illness Chief Complaint: Back Informant: patient Narrative Narrative: Patient presents with she describes as back spasms in her right back. They radiate a little bit down lower into the side of her abdomen. But she states her abdomen does not hurt at all. Her urine seems little darker but she worked last night. She has not seen blood. Nothing makes his pain better or worse. She feels that there is some muscle spasm but moving really does not bother it. She cannot get comfortable. She does not have a history of significant pain. She occasionally sees a chiropractor for adjustment. She tried Flexeril at home that she had leftover from a long time ago. She tried Motrin. These did not help. No numbness tingling or weakness. She did get nauseated once but did not vomit. No fevers or chills. She denies history of prior kidney stones. This pain was a relatively sudden onset though. PFSH PFSH Home Medications Guaifenesin Dm 1,200 mg PO DAILY PRN Allergies 10/17/19 [History Last Taken 02/23/20] Tablet 1 tab PO DAILY Check with primary doctor 10/17/19 [History Last Taken 02/23/20] Zyrtec 10 mg PO DAILY PRN PRN Allergies 10/17/19 [History Last Taken 02/23/20] esomeprazole magnesium 20 mg tablet,delayed release 20 mg PO DAILY indigestion 02/23/20 [History Last Taken 02/23/20] cyclobenzaprine 10 mg tablet 10 mg PO BID PRN muscle spasm #10 tabs 06/12/22 [Rx Last Taken Unknown] hydrocodone-acetaminophen 5-325mg 5mg-325mg 1 tab PO Q6H PRN pain 3 days #10 tabs 06/12/22 [Rx Last Taken Unknown] naproxen 500 mg tablet 500 mg PO BID #14 tabs 06/12/22 [Rx Last Taken Unknown] Allergy/AdvReac Type Severity Reaction Status Date / Time amoxicillin Allergy Hives Verified 06/12/22 11:00 Penicillins Allergy Hives Verified 06/12/22 11:00 Sulfa (Sulfonamide Allergy Hives Verified 06/12/22 11:00 Antibiotics) morphine AdvReac Mild Upset Verified 06/12/22 11:00 Stomach Surgical History H/O bilateral oophorectomy Social History Smoking Status: Never smoker ROS ROS ED Constitutional Constitutional ED: Denies chills or fever(s) ENT ENT ED: Denies rhinorrhea or sore throat Cardiovascular Cardiovascular: Denies chest pain or palpitations Respiratory/Chest Respiratory/Chest: Denies dyspnea or dyspnea on exertion Gastrointestinal Gastrointestinal: Reports nausea; Denies abdominal pain or vomiting Genitourinary Genitourinary ED: Reports other Details: Slightly darker. ; Denies dysuria, hematuria or urinary frequency Musculoskeletal Musculoskeletal: Reports back pain Integumentary Denies rash Neurologic Neurologic: Denies paresthesias or weakness Hematologic/Lymphatic Hematologic/Lymphatic: Denies lymphadenopathy Allergic/Immunologic Allergic/Immunologic ED: Denies urticaria EXAM Physical Exam Const Vital Signs: 06/12/22 11:01 06/12/22 13:00 Temperature 96.8 F L Temperature Source Temporal Pulse Rate 124 H 66 Respiratory Rate 18 16 Blood Pressure 134/118 H 140/78 H Blood Pressure Mean 123 98 Pulse Ox 98 98 Oxygen Delivery Method Room Air Room Air Positive well nourished and well developed Constitutional Narrative: Patient looks uncomfortable. She is lying on her abdomen. She then sits up. She has trouble sitting still General Appearance ED: well developed HEENT Reports moist mucous membranes Eyes General Eye ED: Negative for scleral icterus Neck no JVD Resp normal respiratory effort and clear to auscultation bilaterally Resp Narrative: No pain with deep breath. Lungs are clear. Auscultation: Negative for rales, rhonchi or wheezes Cardio regular rhythm Rate: tachycardic GI normal to inspection, nondistended, normoactive bowel sounds and soft to palpation Back/Spine normal to inspection Back/Spine Narrative: No tenderness with soft touch but there is some mild CVA tenderness with percussion General Back: CVA tenderness Extremity normal to inspection Neuro oriented x3 Psych mental status grossly normal Skin no rashes or lesions noted MDM MDM MDM Narrative Medical decision making narrative: CT does not show findings that really are consistent with her symptoms. Her white count is normal. Electrolytes look good other than mild elevation in creatinine and elevation of glucose. She is at 303. is negative. Urine has 10-25 white cells. But negative nitrites. Only a small amount of leukocyte Estrace. Patient has no dysuria frequency or urgency and has not. I will send this for a culture. Patient is better. She is can sit quietly. She now notices she has pain when she moves or twists. I am not seeing signs of a kidney stone. We explained that it is possible to have a stone that does not show up on the CT. However she also does not have hydronephrosis. We will treat this as pain and likely add muscle relaxants to help that aspect. We also talked about her elevated glucose. She has been borderline diabetic before. She had problems with . She had tried Glucophage but it caused her to be very ill. She also states that she just had some very sweet caramel corn before she came in here. It is possible that her sugar is abnormally high due to a combination of adrenaline and very sweet food before arrival. She has an appointment with her physician in 6 days. She would like to wait to have a repeat complete blood work to see where her sugars are rather than starting meds for the elevated sugar at this time. I think this is a reasonable option. Lab Data Attestation: I reviewed the patient's lab results. Labs: Laboratory Results - last 24 hr 06/12/22 06/12/22 06/12/22 11:19 11:19 11:19 WBC 7.0 RBC 4.95 Hgb 14.4 Hct 40.6 MCV 82.0 MCH 29.1 MCHC 35.5 RDW Std Deviation 35.8 RDW Coeff of Lelia 12.0 Plt Count 307 MPV 11.0 Immature Gran % (Auto) 0.100 Neut % (Auto) 61.8 Lymph % (Auto) 26.9 [place] % (Auto) 8.8 Eos % (Auto) 2.0 Baso % (Auto) 0.4 Absolute Neuts (auto) 4.3 Absolute Lymphs (auto) 1.89 Nucleated RBC % 0 Sodium 137 Potassium 4.0 Chloride 104 Carbon Dioxide 25.0 Anion Gap 8 BUN 14 Creatinine 1.04 H Estim Creat Clear Calc 74.12 Est GFR (MDRD) Af Amer 78 Est GFR (MDRD) Non-Af 64 BUN/Creatinine Ratio 13.5 Glucose 303 H Calcium 10.3 H Serum , Qual NEGATIVE Urine Color Urine Clarity Urine pH Ur Specific [place] Urine Protein Urine Glucose (UA) Urine Ketones Urine Occult Blood Urine Nitrite Urine Bilirubin Urine Urobilinogen Ur Leukocyte Esterase Urine RBC Urine WBC Ur Squamous Epith Cells Urine Bacteria Urine Mucus 06/12/22 11:45 WBC RBC Hgb Hct MCV MCH MCHC RDW Std Deviation RDW Coeff of Lelia Plt Count MPV Immature Gran % (Auto) Neut % (Auto) Lymph % (Auto) [place] % (Auto) Eos % (Auto) Baso % (Auto) Absolute Neuts (auto) Absolute Lymphs (auto) Nucleated RBC % Sodium Potassium Chloride Carbon Dioxide Anion Gap BUN Creatinine Estim Creat Clear Calc Est GFR (MDRD) Af Amer Est GFR (MDRD) Non-Af BUN/Creatinine Ratio Glucose Calcium Serum , Qual Urine Color Yellow Urine Clarity Sl. Cloudy Urine pH 7.0 Ur Specific [place] 1.010 Urine Protein Negative Urine Glucose (UA) 1000 H Urine Ketones 15 H Urine Occult Blood Negative Urine Nitrite Negative Urine Bilirubin Negative Urine Urobilinogen Normal Ur Leukocyte Esterase 100 H Urine RBC 0 SEEN Urine WBC 10-25 SEEN Ur Squamous Epith Cells 0-5 SEEN Urine Bacteria 1+ Urine Mucus 0 SEEN Radiography Diagnostic Testing: Clinical Impression(s) from Imaging Studies Abdomen/Pelvis CT 06/12/22 13:05 IMPRESSION: Findings suggest a mild degree of inflammatory change in the distal ileum. Status post bilateral oophorectomy. Electronically Signed: Anthony Stuart MD at 13:30 EDT , CT showed normal suggestion of mild degree of inflammatory changes of the distal ileum. But she is having no GI symptoms. Her pain is clearly in her right upper back. Discharge Plan Triage Chief Complaint: Back ED Provider: Keyur Cade Dx/Rx/DC Orders Clinical Impression: Back pain, Back spasm Instructions: ED Back Sprain/Strain, ED Muscle Spasm Prescriptions: New cyclobenzaprine 10 mg tablet 10 mg PO BID PRN (Reason: muscle spasm) Qty: 10 0RF hydrocodone-acetaminophen 5-325 mg tablet 1 tab PO Q6H PRN (Reason: pain) 3 Days Qty: 10 0RF naproxen 500 mg tablet 500 mg PO BID Qty: 14 0RF No Action Guaifenesin Dm 1,200 mg PO DAILY PRN (Reason: Allergies) Tablet 1 tab PO DAILY Zyrtec 10 mg PO DAILY PRN PRN (Reason: Allergies) esomeprazole magnesium 20 MG tablet,delayed release (DR/EC) 20 mg PO DAILY Primary Care Provider: Key Chisholm Referrals: Key Chisholm, [Primary Care Provider] - Keep Rehan appointment (Keep your scheduled appointment on the ninth) Disposition Disposition: Home, Self Care
[2022-06-12] MEDS: 0.9% Normal Saline 1,000 ML 1000 ML IV (12:04)
[2022-06-12] MEDS: Ketorolac 15 MG/ML Vial IV (12:04)
[2022-06-12] MEDS: Ondansetron 4 MG/2 ML Vial IV (12:05)
[2022-06-12] MEDS: HYDROmorphone 0.5 MG/0.5 ML SYRINGE IV (12:05)
[2022-06-12 12:16] LABS: Mucous, Urine 0 SEEN /hpf (<or=2+); Red Blood Cells-Urine 0 SEEN /hpf (0-5)
[2022-06-12 12:24] LABS: Absolute Lymphocyte Count 1.89 X10^3/uL (0.83-4.51); Absolute Neutrophil Count 4.3 X10^3/uL (2.0-7.7); Basophil# 0.03 X10^3/uL; Basophil% 0.4 % (0-1); Eosinophil# 0.14 X10^3/uL; Hematocrit 40.6 % (37-47); Hemoglobin 14.4 g/dL (12.0-15.0); Lymphocyte # 1.89 X10^3/ul (0.83-4.51); Lymphocyte % 26.9 % (19-41); Mean Corp Hgb Conc 35.5 g/dL (32-36); Mean Corpuscular Hgb 29.1 pg (27.0-32.0); Monocyte# 0.62 X10^3/uL; Monocyte% 8.8 % (0-10); NRBC Flagged by Analyzer 0 % (0-5); Neutrophil # 4.33 X10^3/uL (2.7-7.7); Neutrophil % 61.8 % (47-70); Platelet Count 307 K/mm3 (150-450); RBC Distribution Width SD 35.8 fl (35.1-43.9); Red Blood Count 4.95 M/mm3 (4.2-5.4)
[2022-06-12 12:30] LABS: Color, Urine Yellow (Yellow); Glucose, Dipstick 1000 mg/dl (Normal); Ketone-Dipstick 15 mg/dl (Negative); Leukocyte Esterase-Dipstick 100 /ul (Negative); Nitrite-Dipstick Negative (Negative); Occult Blood-Urine Negative /ul (Negative); Protein-Dipstick Negative (Negative); Urine Bilirubin Dipstick Negative (Negative); Urine Clarity Sl. Cloudy (Clear); Urine Urobilinogen Normal (Normal)
[2022-06-12 12:37] LABS: Bacteria 1+ /hpf (None Seen); Squamous Epithelial Cells - UA 0-5 SEEN /hpf (5-10); White Blood Cells 10-25 SEEN /hpf (0-5)
[2022-06-12 12:45] LABS: Anion Gap 8 (5-15); BUN 14 mg/dL (7-18); BUN/Creat Ratio 13.5 RATIO (10-20); Calcium,Total 10.3 mg/dL (8.5-10.1); Chloride 104 mmol/L (98-107); Creatinine, Serum 1.04 mg/dL (0.55-1.02); EST Glomerular Filtration Rate 64 mL/min (>60); Est Glom Filt Rate - Afr Amer 78 mL/min (>60); Estimated Creatinine Clearance 74.12 ml/min; Glucose 303 mg/dL (74-106); Sodium Level 137 mmol/L (136-145)
[2022-06-12 12:46] LABS: Internal QC Validated? YES +Cl - CLEAR BKGD; Pregnancy, Serum, hCG Quali. NEGATIVE Negative
[2022-06-12 13:00] VITALS: BP 140/78; PULSE 66; RESP 16; O2SAT 98
--- NOTE | 2022-06-12 13:05 | CT_ITS ---
STUDY: CT ABDOMEN AND PELVIS WITHOUT CONTRAST REASON FOR EXAM: Female, 32 years old. Pain Right flank RADIATION DOSAGE (If Supplied By Facility): CTDIvol = ( 17.98 ) mGy, DLP = ( 1002.45 ) mGycm TECHNIQUE: Transaxial images were obtained from the dome of the diaphragm to the symphysis pubis without oral contrast, and without intravenous contrast. Sagittal and coronal images were reconstructed. Individualized dose optimization techniques were used for this CT. COMPARISON: None. FINDINGS: The visualized lung bases are unremarkable. The visualized portions of the heart are within normal limits. Normal liver. Normal gallbladder and extrahepatic biliary system. Normal spleen. Normal pancreas. There is a small, circumscribed, smooth, low attenuation right adrenal mass, consistent with an adrenal adenoma. This measures 9.8 mm. Normal left adrenal gland. Normal right kidney. Normal left kidney. There is a small hiatal hernia. Mild degree of thickening and inflammatory changes in the distal ileum. Normal colon. There are surgical clips in the region of the appendix consistent with a prior appendectomy. Normal abdominal aorta. Normal inferior vena cava. There is borderline retroperitoneal lymphadenopathy with enlarged nodes no greater than 10mm in the short axis diameter. Normal urinary bladder. Small benign-appearing bilateral inguinal lymph nodes. Status post bilateral oophorectomy. Normal abdominal wall. Normal osseous structures. CT/Abdomen/Pelvis without Cont IMPRESSION: Findings suggest a mild degree of inflammatory change in the distal ileum. Status post bilateral oophorectomy. Electronically Signed: Anthony Stuart MD at 13:30 EDT ,
[2022-06-12 15:08] VITALS: BP 146/78; PULSE 78; RESP 16; TEMP 36.6; O2SAT 99
== END 2022-06-12 15:08 | disposition home or self-care (01) ==
PROVIDERS: Emergency Provider Emergency Medicine; PCP Family Medicine; Visit Provider Emergency Medicine
DX: M54.9 Dorsalgia, unspecified (principal); M62.830 Muscle spasm of back; R73.9 Hyperglycemia, unspecified
CPT/HCPCS: 74176; 80048; 81001; 84703; 85025; 87086; 87088; 96361; 96374; 96375; 99283; J7030; J2405